=== PATIENT | male | born 1945 | race Caucasian/White ===

== ENCOUNTER → 2020-09-30 | Outpatient (CLI) | payer MEDICARE ==
--- NOTE | 2020-09-30 19:56 | REP ---
INDICATION: SMOKER. COMPARISON: None. TECHNIQUE: Dose reduction was performed utilizing CARE dose with automated adjustment of the kV and MAS according to patient size; iterative reconstruction, automated exposure control, as well as adaptive dose shielding. Helical scanning is acquired and 3 mm axial images are re-formatted at lung only windows. FINDINGS: Preliminary digital video coordinator radiograph demonstrates hyperinflation. There are [id number] emphysematous changes at the lung apices. Biapical pleuroparenchymal fibrosis changes are noted. No infiltrate or pleural effusion is seen. No lung mass lesion is seen. No significant pulmonary nodule is appreciated. Mild vascular calcification is observed. No significant pulmonary nodule is seen. IMPRESSION: Lung RADS category 1 findings. Repeat screening exam recommended in 1 year. <Electronically signed by Cecilio Harrison > 09/30/201951
== END ==
LOC: M RAD 13:21
PROVIDERS: ATTEND Family Medicine
DX: J98.4 Other disorders of lung (principal); J43.9 Emphysema, unspecified; J94.8 Other specified pleural conditions; F17.200 Nicotine dependence, unspecified, uncomplicated

== ENCOUNTER → 2021-09-12 | Outpatient (CLI) | payer MEDICARE ==
[~2021-09-12] MED LIST: AMLO1TAB24 PO; CLOP75TA2 PO; D-50CAP PO; ECOT81TA5 PO; FAMO1TAB11 PO; GABA-282 PO; IRON65TA2 PO; LEVO100T5 PO; OMEP40CA5 PO; PURE500C5 PO; SIMV20TA22 PO; TREL1AER IH
== END ==
LOC: M LABSMTC 11:17
PROVIDERS: ATTEND Anesthesiology
DX: Z20.828 Contact with and (suspected) exposure to other viral communicable diseases (principal); Z11.59 Encounter for screening for other viral diseases

== ENCOUNTER 2021-09-17 12:00 | Day surgery (SDC) | payer MEDICARE ==
[~2021-09-17] VITALS: Ht 165.1 cm; Wt 56.2 kg
[2021-09-17] MEDS ORDERED: LISI20TA33 PO (12:27)
[2021-09-17] MEDS ORDERED: propofoL 200 MG/20 ML VIAL As Ordered ONE (12:32)
[2021-09-17] MEDS ORDERED: LIDOCAINE 2% 100MG/5ML SDV (FOR ANES.) As Ordered ONE (12:32)
[2021-09-17] MEDS ORDERED: fentaNYL 100 MCG/2 ML INJECTION As Ordered ONE (13:14)
[2021-09-17] MEDS ORDERED: ePHEDrine SULFATE 25 MG/5 ML(5MG/ML) SYRINGE As Ordered ONE (13:26)
[2021-09-17 14:00] VITALS: BP 123/70
== END 2021-09-17 14:11 | disposition home or self-care (01) ==
LOC: M OPP 12:00
PROVIDERS: ATTEND Internal Medicine Gastroenterology
DX: K57.30 Diverticulosis of large intestine without perforation or abscess without bleeding (principal); K64.0 First degree hemorrhoids; K92.1 Melena; K44.9 Diaphragmatic hernia without obstruction or gangrene; K29.70 Gastritis, unspecified, without bleeding; R10.13 Epigastric pain; Z87.11 Personal history of peptic ulcer disease; Z79.82 Long term (current) use of aspirin; Z79.899 Other long term (current) drug therapy; F17.210 Nicotine dependence, cigarettes, uncomplicated
CPT/HCPCS: 43239; 45378; 88305; J3010

== ENCOUNTER → 2021-10-01 | Outpatient (CLI) | payer MEDICARE ==
[~2021-10-01] MED LIST changes: +LISI20TA33 PO
== END ==
LOC: M RAD 13:59
PROVIDERS: ATTEND Family Medicine
DX: F17.200 Nicotine dependence, unspecified, uncomplicated (principal); J43.9 Emphysema, unspecified; R91.1 Solitary pulmonary nodule; Z79.899 Other long term (current) drug therapy

== ENCOUNTER → 2022-10-07 | Outpatient (CLI) | payer MEDICARE ==
[~2022-10-07] MED LIST changes: +ASCO500C3 PO; -PURE500C5 PO
== END ==
LOC: M RAD 11:49
PROVIDERS: ATTEND Family Medicine
DX: Z12.2 Encounter for screening for malignant neoplasm of respiratory organs (principal); F17.210 Nicotine dependence, cigarettes, uncomplicated; R91.8 Other nonspecific abnormal finding of lung field

== ENCOUNTER → 2022-11-02 | Outpatient (CLI) | payer MEDICARE | LOC: M PLARAD 07:55 | PROVIDERS: ATTEND Family Medicine | DX: R91.8 Other nonspecific abnormal finding of lung field (principal); F17.200 Nicotine dependence, unspecified, uncomplicated | CPT/HCPCS: 78815; A9552 ==

== ENCOUNTER → 2022-12-04 | Outpatient (CLI) | payer MEDICARE | LOC: M RAD 07:59 | PROVIDERS: ATTEND Surgery | DX: R93.2 Abnormal findings on diagnostic imaging of liver and biliary tract (principal) ==

== ENCOUNTER 2023-03-16 19:02 | Inpatient (IN) | payer MEDICARE ==
[~2023-03-16] VITALS: Ht 162.6 cm; Wt 59.1 kg
[~2023-03-16 19:02] MED LIST changes: -TREL1AER IH; +TREL1AER INH
[2023-03-16 20:25] VITALS: BP 153/69; TEMP 97.3; O2SAT 95
[2023-03-16] MEDS ORDERED: MOM 30ML SUSPENSION UDC PO PRN (20:40)
[2023-03-16] MEDS ORDERED: ACETAMINOPHEN TAB 650MG DOSE (2X325MG) PO PRN (20:40)
[2023-03-16 21:36] LABS: HEMOGLOBIN 13.7 g/dl (13.5-17.5); MEAN CORPUSCULAR HEMOGLOBIN 31.7 pg (27.0-33.0); MEAN CORPUSCULAR HGB CONC 34.3 g/dl (32.0-36.5); MEAN CORPUSCULAR VOLUME 92.6 fl (80.0-96.0); PLATELET COUNT, AUTOMATED 476 10^3/uL (150-450); RED BLOOD COUNT 4.32 10^6/uL (4.30-6.10); WHITE BLOOD COUNT 13.8 10^3/uL (4.0-10.0)
[2023-03-16 21:49] LABS: INR 1.07; PROTHROMBIN TIME 13.6 SECONDS (12.5-14.5)
[2023-03-16] MEDS ORDERED: ALBUTEROL SULFATE 2.5MG/0.5ML INH NEB SOLN NEB PRN (21:50)
[2023-03-16] MEDS ORDERED: cefTRIAXone SOD 2 GM in D5W MINI-BAG PLUS 50 ML IV SCH (22:00)
[2023-03-16 22:06] LABS: ALBUMIN 2.9 G/DL (3.2-5.2); ALKALINE PHOSPHATASE 73 U/L (46-116); ALT/SGPT 45 U/L (7.0-40); AST/SGOT < 8 U/L (<34); BILIRUBIN,TOTAL 0.3 MG/DL (0.3-1.2); BLOOD UREA NITROGEN 24 MG/DL (9-23); CALCIUM LEVEL 9.2 MG/DL (8.3-10.6); CARBON DIOXIDE LEVEL 30 MMOL/L (20-31); CHLORIDE LEVEL 101 MMOL/L (98-107); CREATININE FOR GFR 0.98 MG/DL (0.70-1.30); GLOMERULAR FILTRATION RATE > 60.0 (>42); GLUCOSE, FASTING 143 MG/DL (74-106); POTASSIUM SERUM 5.2 MMOL/L (3.5-5.1); SODIUM LEVEL 136 MMOL/L (136-145)
[2023-03-16] MEDS ORDERED: ISOVUE-370 76% 100ML VIAL As Ordered ONE (22:07)
[2023-03-16 22:13] LABS: PROCALCITONIN <0.04 ng/ml
[2023-03-16] MEDS ORDERED: AZITHROMYCIN INJ 500 MG, VIAL MATE ADAPTER 1 EACH in D5W 250 ML IV SCH (23:00)
[2023-03-17] VITALS (48 sets, daily range): BP systolic 90–159; BP diastolic 48–69; TEMP 97.1–97.9; O2SAT 91–98
[2023-03-17] MEDS ORDERED: SYNT75TA PO (00:20)
[2023-03-17] MEDS ORDERED: PREG100CA PO ×2 (00:20→00:21)
[2023-03-17] MEDS ORDERED: ALBU8.5H INH (00:20)
[2023-03-17] MEDS ORDERED: AMOX875T2 PO (00:20)
[2023-03-17] MEDS ORDERED: PRED20TA PO (00:20)
[2023-03-17] MEDS ORDERED: AMLO2.5T3 PO (00:20)
[2023-03-17] MEDS ORDERED: FURO20TA2 PO (00:20)
[2023-03-17] MEDS ORDERED: LISI40TA4 PO (00:20)
[2023-03-17] MEDS ORDERED: OMEP-173 PO (00:20)
[2023-03-17] MEDS ORDERED: EZET10TA58 PO (00:20)
[2023-03-17] MEDS ORDERED: GABA-282 PO (00:21)
[2023-03-17] MEDS ORDERED: MED REC IN PROGRESS XX SCH (00:25)
[2023-03-17] MEDS: IPRATROPIUM 0.5MG/ALBUTEROL 2.5MG INH SOL UD 3ML (DUONEB) NEB SCH ×4 (01:22→19:29)
[2023-03-17 05:57] LABS: HEMATOCRIT 37.2 % (42.0-52.0); HEMOGLOBIN 12.7 g/dl (13.5-17.5); MEAN CORPUSCULAR HEMOGLOBIN 31.3 pg (27.0-33.0); MEAN CORPUSCULAR HGB CONC 34.1 g/dl (32.0-36.5); MEAN CORPUSCULAR VOLUME 91.6 fl (80.0-96.0); PLATELET COUNT, AUTOMATED 466 10^3/uL (150-450); RED BLOOD COUNT 4.06 10^6/uL (4.30-6.10); WHITE BLOOD COUNT 17.2 10^3/uL (4.0-10.0)
[2023-03-17] MEDS: LEVOTHYROXINE 75MCG TABLET (0.075MG) PO SCH (06:17)
[2023-03-17] MEDS ORDERED: HOME MED LIST COMPLETE! XX SCH (06:25)
[2023-03-17 06:27] LABS: BLOOD UREA NITROGEN 22 MG/DL (9-23); CALCIUM LEVEL 8.6 MG/DL (8.3-10.6); CARBON DIOXIDE LEVEL 28 MMOL/L (20-31); CHLORIDE LEVEL 101 MMOL/L (98-107); CREATININE FOR GFR 0.94 MG/DL (0.70-1.30); GLOMERULAR FILTRATION RATE > 60.0 (>42); GLUCOSE, FASTING 121 MG/DL (74-106); POTASSIUM SERUM 4.4 MMOL/L (3.5-5.1); SODIUM LEVEL 135 MMOL/L (136-145)
[2023-03-17] MEDS: PIPERACILLIN/TAZOBACTAM SOD 4.5 GM in D5W MINI-BAG PLUS 50 ML IV SCH ×3 (08:17→23:36)
[2023-03-17] MEDS: OMEPRAZOLE 20MG CAP PO SCH (08:18)
[2023-03-17] MEDS: NICOTINE 21MG/24HR 1 EA TRANSDERMAL TD SCH (08:19)
[2023-03-17] MEDS: CLOPIDOGREL 75 MG TAB PO SCH (08:19)
[2023-03-17] MEDS: EZETIMIBE 10MG TABLET (ZETIA) PO SCH (08:19)
[2023-03-17] MEDS: ASPIRIN 81MG ENTERIC TABLET PO SCH (08:19)
[2023-03-17] MEDS ORDERED: LIDOCAINE 1% MDV 20ML VIAL SC PRN (08:55)
[2023-03-17] MEDS ORDERED: flumazeniL 0.5MG/5ML VIAL IV PRN (08:55)
[2023-03-17] MEDS: DOCUSATE SODIUM 100MG CAPSULE PO SCH ×2 (09:00→20:37)
[2023-03-17] MEDS: MIDAZOLAM 5MG 5ML VIAL (FOR CHEST TUBE INSERTIONS) IV PRN ×2 (09:06→09:09)
[2023-03-17] MEDS ORDERED: KETOROLAC 30 MG/ML 1ML VIAL As Ordered ONE (09:18)
[2023-03-17] MEDS ORDERED: PERCOCET 5MG/325MG TAB PO PRN ×2 (09:30)
[2023-03-17] MEDS ORDERED: ONDANSETRON 4MG 2ML VIAL IV PRN (09:30)
[2023-03-17] MEDS ORDERED: BISACODYL 10MG SUPP PR PRN (09:30)
[2023-03-17] MEDS ORDERED: LEVALBUTEROL 1.25MG 0.5ML CONCENTRATE NEB NEB PRN (09:30)
[2023-03-17] MEDS ORDERED: KCL 20MEQ IN D5/NS 1000ML 1,000 ML IV SCH (09:30)
[2023-03-17] MEDS ORDERED: KETOROLAC 30 MG/ML 1ML VIAL IV ONE (09:45)
[2023-03-17 09:51] LABS: LDH LACTATE DEHYDROGENASE 147 U/L (120-246)
[2023-03-17 11:33] LABS: PLEURAL FL COLOR RED (COLORLESS); SOURCE, BODY FLUID PLEURAL
[2023-03-17 11:34] LABS: APPEARANCE, BODY FLUID TURBID (CLEAR)
[2023-03-17 11:40] LABS: SOURCE, BODY FLUID pH PLEURAL
[2023-03-17 11:58] LABS: SOURCE, BODY FLUID ALBUMIN PLEURAL
[2023-03-17 12:04] LABS: SOURCE, BODY FLUID GLUCOSE PLEURAL; SOURCE, BODY FLUID TRIG PLEURAL; TRIGLYCERIDE, BODY FLUID 44 MG/DL (NOT ESTABLISHED)
[2023-03-17 12:05] LABS: AMYLASE, BODY FLUID 33 U/L (NOT ESTABLISHED); SOURCE, BODY FLUID AMYLASE PLEURAL
[2023-03-17 12:06] LABS: CHOLESTEROL, BODY FLUID 86 MG/DL (NOT ESTABLISHED); SOURCE, BODY FLUID CHOL PLEURAL; SOURCE, BODY FLUID TOT PROTEIN PLEURAL; TOTAL PROTEIN, BODY FLUID 4.3 G/DL (NOT ESTABLISHED)
[2023-03-17 12:15] LABS: LDH, BODY FLUID > 750 U/L (NOT ESTABLISHED); SOURCE, BODY FLUID LDH PLEURAL
[2023-03-17] MEDS ORDERED: LEVALBUTEROL 1.25MG 0.5ML CONCENTRATE NEB NEB SCH (14:00)
[2023-03-17] MEDS: TIOTROPIUM INHALER/CAPSULE (SPIRIVA) INH SCH (14:46)
[2023-03-17] MEDS: KETOROLAC 30 MG/ML 1ML VIAL IV SCH ×2 (16:04→20:38)
[2023-03-17] MEDS: ADVAIR HFA 115/21MCG INHALER INH SCH (19:29)
[2023-03-17] MEDS: AZITHROMYCIN 250MG TABLET PO SCH (20:37)
[2023-03-18] VITALS (23 sets, daily range): BP systolic 100–166; BP diastolic 50–70; TEMP 97.2–98.5; O2SAT 93–97
[2023-03-18] MEDS: IPRATROPIUM 0.5MG/ALBUTEROL 2.5MG INH SOL UD 3ML (DUONEB) NEB SCH ×4 (01:14→19:24)
[2023-03-18] MEDS: KETOROLAC 30 MG/ML 1ML VIAL IV SCH ×2 (04:00→09:09)
[2023-03-18 05:12] LABS: BASO # 0.1 10^3/uL (0.0-0.2); BASO % 0.4 % (0.0-1.0); EOS # 0.5 10^3/uL (0.0-0.5); EOS % 3.7 % (0.0-3.0); HEMOGLOBIN 12.7 g/dl (13.5-17.5); LYMPH # 1.8 10^3/uL (1.5-5.0); LYMPH % 13.2 % (24.0-44.0); MEAN CORPUSCULAR HEMOGLOBIN 31.4 pg (27.0-33.0); MEAN CORPUSCULAR HGB CONC 33.4 g/dl (32.0-36.5); MEAN CORPUSCULAR VOLUME 93.8 fl (80.0-96.0); MONO % 11.6 % (2.0-8.0); NEUTROPHILS # 9.5 10^3/uL (1.5-8.5); NEUTROPHILS % 69.8 % (36.0-66.0); PLATELET COUNT, AUTOMATED 454 10^3/uL (150-450); RED BLOOD COUNT 4.05 10^6/uL (4.30-6.10); WHITE BLOOD COUNT 13.5 10^3/uL (4.0-10.0)
[2023-03-18 05:34] LABS: BLOOD UREA NITROGEN 25 MG/DL (9-23); CALCIUM LEVEL 8.4 MG/DL (8.3-10.6); CARBON DIOXIDE LEVEL 27 MMOL/L (20-31); CHLORIDE LEVEL 100 MMOL/L (98-107); CREATININE FOR GFR 1.22 MG/DL (0.70-1.30); GLOMERULAR FILTRATION RATE > 60.0 (>42); GLUCOSE, FASTING 103 MG/DL (74-106); SODIUM LEVEL 133 MMOL/L (136-145)
[2023-03-18] MEDS: LEVOTHYROXINE 75MCG TABLET (0.075MG) PO SCH (05:49)
[2023-03-18 06:06] LABS: ABG BASE EXCESS 4.2 (-2.0-2.0); ABG HCO3 27.5 MMOL/L (22.0-26.0); ABG O2 SATURATION 95.9 % (95.0-99.0); ABG PARTIAL PRESSURE CO2 36.9 mmHg (35.0-45.0); ABG STANDARD HCO3 28.1 MMOL/L. (22.0-26.0); ABG TOTAL CO2 28.6 MMOL/L (23.0-31.0)
[2023-03-18 06:40] LABS: MONO # 1.6 10^3/uL (0.0-0.8)
[2023-03-18] MEDS: TIOTROPIUM INHALER/CAPSULE (SPIRIVA) INH SCH (08:18)
[2023-03-18] MEDS: ADVAIR HFA 115/21MCG INHALER INH SCH ×2 (08:19→19:24)
[2023-03-18] MEDS: DOCUSATE SODIUM 100MG CAPSULE PO SCH ×2 (09:00→20:27)
[2023-03-18] MEDS: NICOTINE 21MG/24HR 1 EA TRANSDERMAL TD SCH (09:00)
[2023-03-18] MEDS ORDERED: PANTOPRAZOLE 40MG TAB (PROTONIX) PO SCH (09:00)
[2023-03-18] MEDS: OMEPRAZOLE 20MG CAP PO SCH (09:07)
[2023-03-18] MEDS: CLOPIDOGREL 75 MG TAB PO SCH (09:07)
[2023-03-18] MEDS: ASPIRIN 81MG ENTERIC TABLET PO SCH (09:07)
[2023-03-18] MEDS: EZETIMIBE 10MG TABLET (ZETIA) PO SCH (09:07)
[2023-03-18] MEDS: PIPERACILLIN/TAZOBACTAM SOD 4.5 GM in D5W MINI-BAG PLUS 50 ML IV SCH ×3 (10:01→23:37)
[2023-03-18] MEDS: NS 1,000 ML IV SCH (12:29)
[2023-03-18] MEDS: AZITHROMYCIN 250MG TABLET PO SCH (20:26)
[2023-03-19] VITALS (26 sets, daily range): BP systolic 112–139; BP diastolic 59–63; TEMP 97.7–98.8; O2SAT 92–97
[2023-03-19] MEDS: IPRATROPIUM 0.5MG/ALBUTEROL 2.5MG INH SOL UD 3ML (DUONEB) NEB SCH ×4 (01:02→19:59)
[2023-03-19] MEDS: NS 1,000 ML IV SCH (01:24)
[2023-03-19 05:23] LABS: BASO # 0.1 10^3/uL (0.0-0.2); BASO % 0.5 % (0.0-1.0); EOS # 0.8 10^3/uL (0.0-0.5); EOS % 8.6 % (0.0-3.0); HEMATOCRIT 35.9 % (42.0-52.0); HEMOGLOBIN 12.3 g/dl (13.5-17.5); LYMPH # 1.3 10^3/uL (1.5-5.0); LYMPH % 13.3 % (24.0-44.0); MEAN CORPUSCULAR HEMOGLOBIN 31.5 pg (27.0-33.0); MEAN CORPUSCULAR HGB CONC 34.3 g/dl (32.0-36.5); MEAN CORPUSCULAR VOLUME 91.8 fl (80.0-96.0); MONO # 1.2 10^3/uL (0.0-0.8); MONO % 12.6 % (2.0-8.0); PLATELET COUNT, AUTOMATED 425 10^3/uL (150-450); RED BLOOD COUNT 3.91 10^6/uL (4.30-6.10); WHITE BLOOD COUNT 9.5 10^3/uL (4.0-10.0)
[2023-03-19 05:34] LABS: BLOOD UREA NITROGEN 13 MG/DL (9-23); CALCIUM LEVEL 8.2 MG/DL (8.3-10.6); CARBON DIOXIDE LEVEL 27 MMOL/L (20-31); CHLORIDE LEVEL 104 MMOL/L (98-107); CREATININE FOR GFR 1.13 MG/DL (0.70-1.30); GLOMERULAR FILTRATION RATE > 60.0 (>42); GLUCOSE, FASTING 98 MG/DL (74-106); POTASSIUM SERUM 3.9 MMOL/L (3.5-5.1); SODIUM LEVEL 136 MMOL/L (136-145)
[2023-03-19] MEDS: LEVOTHYROXINE 75MCG TABLET (0.075MG) PO SCH (05:41)
[2023-03-19] MEDS: ADVAIR HFA 115/21MCG INHALER INH SCH ×2 (07:57→19:59)
[2023-03-19] MEDS: TIOTROPIUM INHALER/CAPSULE (SPIRIVA) INH SCH (07:57)
[2023-03-19] MEDS: DOCUSATE SODIUM 100MG CAPSULE PO SCH ×2 (08:01→20:59)
[2023-03-19] MEDS: OMEPRAZOLE 20MG CAP PO SCH (08:33)
[2023-03-19] MEDS: CLOPIDOGREL 75 MG TAB PO SCH (08:33)
[2023-03-19] MEDS: EZETIMIBE 10MG TABLET (ZETIA) PO SCH (08:33)
[2023-03-19] MEDS: ASPIRIN 81MG ENTERIC TABLET PO SCH (08:33)
[2023-03-19] MEDS: NICOTINE 21MG/24HR 1 EA TRANSDERMAL TD SCH (08:34)
[2023-03-19] MEDS: GASTROGRAFIN SOLUTION 30ML PO SCH ×2 (11:50→12:32)
[2023-03-19] MEDS ORDERED: ISOVUE-370 76% 100ML VIAL As Ordered ONE (13:44)
[2023-03-19] MEDS: AZITHROMYCIN 250MG TABLET PO SCH (20:59)
[2023-03-20] VITALS (7 sets, daily range): BP systolic 115–130; BP diastolic 56–66; TEMP 97.4–97.9; O2SAT 93–99
[2023-03-20] MEDS: IPRATROPIUM 0.5MG/ALBUTEROL 2.5MG INH SOL UD 3ML (DUONEB) NEB SCH ×2 (01:01→07:05)
[2023-03-20] MEDS: LEVOTHYROXINE 75MCG TABLET (0.075MG) PO SCH (05:55)
[2023-03-20 06:34] LABS: BASO # 0.1 10^3/uL (0.0-0.2); BASO % 0.8 % (0.0-1.0); EOS # 0.8 10^3/uL (0.0-0.5); EOS % 6.1 % (0.0-3.0); HEMATOCRIT 38.3 % (42.0-52.0); HEMOGLOBIN 12.5 g/dl (13.5-17.5); LYMPH # 1.5 10^3/uL (1.5-5.0); LYMPH % 10.8 % (24.0-44.0); MEAN CORPUSCULAR HEMOGLOBIN 31.3 pg (27.0-33.0); MEAN CORPUSCULAR HGB CONC 32.6 g/dl (32.0-36.5); MEAN CORPUSCULAR VOLUME 95.8 fl (80.0-96.0); MONO # 1.4 10^3/uL (0.0-0.8); NEUTROPHILS # 9.5 10^3/uL (1.5-8.5); NEUTROPHILS % 70.8 % (36.0-66.0); PLATELET COUNT, AUTOMATED 294 10^3/uL (150-450); WHITE BLOOD COUNT 13.5 10^3/uL (4.0-10.0)
[2023-03-20] MEDS: ADVAIR HFA 115/21MCG INHALER INH SCH (07:05)
[2023-03-20] MEDS: TIOTROPIUM INHALER/CAPSULE (SPIRIVA) INH SCH (07:05)
[2023-03-20 07:11] LABS: BLOOD UREA NITROGEN 11 MG/DL (9-23); CALCIUM LEVEL 8.4 MG/DL (8.3-10.6); CARBON DIOXIDE LEVEL 27 MMOL/L (20-31); CHLORIDE LEVEL 105 MMOL/L (98-107); CREATININE FOR GFR 0.89 MG/DL (0.70-1.30); GLOMERULAR FILTRATION RATE > 60.0 (>42); GLUCOSE, FASTING 95 MG/DL (74-106); POTASSIUM SERUM 4.4 MMOL/L (3.5-5.1); SODIUM LEVEL 138 MMOL/L (136-145)
[2023-03-20] MEDS: NICOTINE 21MG/24HR 1 EA TRANSDERMAL TD SCH (09:00)
[2023-03-20] MEDS: DOCUSATE SODIUM 100MG CAPSULE PO SCH (09:00)
[2023-03-20] MEDS: EZETIMIBE 10MG TABLET (ZETIA) PO SCH (09:05)
[2023-03-20] MEDS: OMEPRAZOLE 20MG CAP PO SCH (09:05)
[2023-03-20] MEDS: ASPIRIN 81MG ENTERIC TABLET PO SCH (09:05)
[2023-03-20] MEDS: CLOPIDOGREL 75 MG TAB PO SCH (09:05)
[2023-03-20] MEDS ORDERED: ALB2.5NEB NEB (09:21)
== END 2023-03-20 11:17 | disposition home or self-care (01) | DRG 180 ==
LOC: M PCU 20:24
PROVIDERS: ADMIT Student in an Organized Health Care Education/Training Program; ATTEND Student in an Organized Health Care Education/Training Program
PROC: 0W9930Z Drainage of Right Pleural Cavity with Drainage Device, Percutaneous Approach (ICD-10-PCS; principal; 2023-03-17)
DX: C34.11 Malignant neoplasm of upper lobe, right bronchus or lung (principal); J96.01 Acute respiratory failure with hypoxia; J91.0 Malignant pleural effusion; J81.1 Chronic pulmonary edema; E03.9 Hypothyroidism, unspecified; I10 Essential (primary) hypertension; J44.9 Chronic obstructive pulmonary disease, unspecified; E78.5 Hyperlipidemia, unspecified; Z95.9 Presence of cardiac and vascular implant and graft, unspecified; Z66 Do not resuscitate; Z79.02 Long term (current) use of antithrombotics/antiplatelets; Z79.82 Long term (current) use of aspirin; F17.210 Nicotine dependence, cigarettes, uncomplicated; Z92.3 Personal history of irradiation; Z79.899 Other long term (current) drug therapy; E86.0 Dehydration

== ENCOUNTER 2023-04-10 10:53 | Emergency (ER) | payer MEDICARE ==
[~2023-04-10] VITALS: Ht 162.6 cm; Wt 53.8 kg
[~2023-04-10 10:53] MED LIST changes: +ALB2.5NEB NEB; +ALBU8.5H INH; +AMLO2.5T3 PO; +AMOX875T2 PO; +EZET10TA58 PO; +FURO20TA2 PO; +LEVO88TA3; +LIDO30CR18 TOP; +LISI20TA33; +LISI40TA4 PO; +OMEP-173 PO; +PRED20TA PO; +PREG100CA PO; +SYNT75TA PO
[2023-04-10 10:54] VITALS: BP 149/70; TEMP 96.9; O2SAT 96
== END 2023-04-10 14:41 | disposition home or self-care (01) ==
LOC: M ED 12:52
DX: R06.02 Shortness of breath (principal); I45.10 Unspecified right bundle-branch block; I25.2 Old myocardial infarction; I10 Essential (primary) hypertension; F17.200 Nicotine dependence, unspecified, uncomplicated; Z79.01 Long term (current) use of anticoagulants; Z79.811 Long term (current) use of aromatase inhibitors; Z79.899 Other long term (current) drug therapy

== ENCOUNTER → 2023-04-19 | Outpatient (CLI) | payer MEDICARE ==
[~2023-04-19] MED LIST changes: +IPRA0.00
== END ==
LOC: M RAD 13:12
PROVIDERS: ATTEND Internal Medicine Critical Care Medicine
DX: C34.90 Malignant neoplasm of unspecified part of unspecified bronchus or lung (principal)

== ENCOUNTER 2023-05-03 17:38 | Emergency (ER) | payer MEDICARE ==
[~2023-05-03] VITALS: Ht 162.6 cm; Wt 52.4 kg
[~2023-05-03 17:38] MED LIST changes: -ACET-716 PO; -BENZ200C70 PO
[2023-05-03 17:39] VITALS: TEMP 96.5
[2023-05-03] MEDS ORDERED: SODIUM CHLORIDE 0.9% INJ 10 ML SYR IV PRN (18:30)
[2023-05-03 19:20] LABS: BASO # 0.1 10^3/uL (0.0-0.2); BASO % 1.3 % (0.0-1.0); EOS # 0.5 10^3/uL (0.0-0.5); EOS % 4.9 % (0.0-3.0); HEMATOCRIT 42.7 % (42.0-52.0); HEMOGLOBIN 14.5 g/dl (13.5-17.5); LYMPH # 1.8 10^3/uL (1.5-5.0); LYMPH % 19.4 % (24.0-44.0); MEAN CORPUSCULAR HEMOGLOBIN 31.5 pg (27.0-33.0); MEAN CORPUSCULAR VOLUME 92.8 fl (80.0-96.0); MONO # 0.9 10^3/uL (0.0-0.8); PLATELET COUNT, AUTOMATED 385 10^3/uL (150-450); WHITE BLOOD COUNT 9.3 10^3/uL (4.0-10.0)
[2023-05-03 19:44] LABS: LIPASE 31 U/L (12-53)
[2023-05-03 19:45] LABS: ALBUMIN 3.6 G/DL (3.2-5.2); ALKALINE PHOSPHATASE 73 U/L (46-116); ALT/SGPT < 9 U/L (7.0-40); AST/SGOT 13 U/L (<34); BILIRUBIN,DIRECT < 0.1 MG/DL (<0.4); BILIRUBIN,TOTAL 0.2 MG/DL (0.3-1.2); BLOOD UREA NITROGEN 16 MG/DL (9-23); CALCIUM LEVEL 9.8 MG/DL (8.3-10.6); CARBON DIOXIDE LEVEL 29 MMOL/L (20-31); CHLORIDE LEVEL 100 MMOL/L (98-107); CK-MB VALUE MASS < 1.0 NG/ML (<3.6); CPK CREATINE PHOSPHOKINASE 42 U/L (46-171); CREATININE FOR GFR 0.98 MG/DL (0.70-1.30); GLOMERULAR FILTRATION RATE > 60.0 (>42); GLUCOSE, FASTING 92 MG/DL (74-106); MB/CK RELATIVE INDEX 2.38 (< OR =4); POTASSIUM SERUM 4.1 MMOL/L (3.5-5.1); SODIUM LEVEL 137 MMOL/L (136-145); TOTAL PROTEIN 6.8 G/DL (5.7-8.2)
[2023-05-03] MEDS ORDERED: ISOVUE-370 76% 100ML VIAL As Ordered ONE (19:54)
[2023-05-03 21:30] VITALS: O2SAT 93
[2023-05-03] MEDS ORDERED: BENZ200C70 PO (21:48)
[2023-05-03] MEDS ORDERED: ACET-716 PO (21:48)
[2023-05-03 22:15] VITALS: BP 158/75
== END 2023-05-03 22:21 | disposition home or self-care (01) ==
LOC: M ED 17:38
DX: R06.00 Dyspnea, unspecified (principal); R09.1 Pleurisy; J91.8 Pleural effusion in other conditions classified elsewhere; E78.5 Hyperlipidemia, unspecified; F17.200 Nicotine dependence, unspecified, uncomplicated; J44.9 Chronic obstructive pulmonary disease, unspecified; J98.4 Other disorders of lung; Z79.01 Long term (current) use of anticoagulants; Z79.52 Long term (current) use of systemic steroids; Z79.811 Long term (current) use of aromatase inhibitors; Z79.83 Long term (current) use of bisphosphonates; Z79.899 Other long term (current) drug therapy
CPT/HCPCS: 71046; 71275; 80048; 80076; 82550; 82553; 83605; 83690; 83880; 84484; 85025; 87040; 93005; 93041; 94760; 96374; 99285; Q9967

== ENCOUNTER → 2023-05-03 | Outpatient (CLI) | payer MEDICARE ==
[~2023-05-03] MED LIST changes: +ACET-716 PO; +BENZ200C70 PO; +PROC10TA5 PO
== END ==
LOC: M RAD 12:01
PROVIDERS: ATTEND Internal Medicine Critical Care Medicine
DX: J98.4 Other disorders of lung (principal)

== ENCOUNTER 2023-05-24 21:36 | Inpatient (IN) | payer MEDICARE ==
[~2023-05-24] VITALS: Ht 162.6 cm; Wt 49.5 kg
[~2023-05-24 21:36] MED LIST changes: +ACET-716 PO; +BENZ200C70 PO
[2023-05-24] MEDS ORDERED: APAP325T4 PO (21:50)
[2023-05-24 22:28] LABS: BASO # 0.1 10^3/uL (0.0-0.2); EOS # 0.4 10^3/uL (0.0-0.5); EOS % 3.3 % (0.0-3.0); HEMATOCRIT 40.7 % (42.0-52.0); LYMPH # 1.3 10^3/uL (1.5-5.0); LYMPH % 11.4 % (24.0-44.0); MEAN CORPUSCULAR HEMOGLOBIN 31.5 pg (27.0-33.0); MEAN CORPUSCULAR HGB CONC 34.4 g/dl (32.0-36.5); MEAN CORPUSCULAR VOLUME 91.7 fl (80.0-96.0); MONO # 1.2 10^3/uL (0.0-0.8); MONO % 10.8 % (2.0-8.0); NEUTROPHILS # 8.4 10^3/uL (1.5-8.5); NEUTROPHILS % 73.2 % (36.0-66.0); PLATELET COUNT, AUTOMATED 264 10^3/uL (150-450); RED BLOOD COUNT 4.44 10^6/uL (4.30-6.10); WHITE BLOOD COUNT 11.5 10^3/uL (4.0-10.0)
[2023-05-24] MEDS ORDERED: SODIUM CHLORIDE 0.9% INJ 10 ML SYR IV PRN (22:30)
[2023-05-24 22:39] LABS: INR 1.14; PROTHROMBIN TIME 14.2 SECONDS (12.5-14.5)
[2023-05-24] MEDS: NITROGLYCERIN 0.4MG SUBL TABLET SL PRN ×3 (22:46→22:59)
[2023-05-24] MEDS: ASPIRIN 81MG CHEW TABLET PO ONE ×2 (22:48→23:59)
[2023-05-24 23:01] LABS: ALBUMIN 3.2 G/DL (3.2-5.2); ALKALINE PHOSPHATASE 83 U/L (46-116); ALT/SGPT < 9 U/L (7.0-40); AST/SGOT 9 U/L (<34); BILIRUBIN,DIRECT 0.1 MG/DL (<0.4); BILIRUBIN,TOTAL 0.3 MG/DL (0.3-1.2); BLOOD UREA NITROGEN 17 MG/DL (9-23); CALCIUM LEVEL 9.5 MG/DL (8.3-10.6); CARBON DIOXIDE LEVEL 28 MMOL/L (20-31); CHLORIDE LEVEL 100 MMOL/L (98-107); CK-MB VALUE MASS < 1.0 NG/ML (<3.6); GLOMERULAR FILTRATION RATE > 60.0 (>42); GLUCOSE, FASTING 114 MG/DL (74-106); POTASSIUM SERUM 4.2 MMOL/L (3.5-5.1); SODIUM LEVEL 134 MMOL/L (136-145); TOTAL PROTEIN 6.6 G/DL (5.7-8.2)
[2023-05-24 23:03] LABS: FREE T4 1.09 NG/DL (0.89-1.76); THYROID STIMULATING HORMONE 7.763 uIU/ML (0.55-4.78)
[2023-05-24 23:10] LABS: CPK CREATINE PHOSPHOKINASE 36 U/L (46-171); MB/CK RELATIVE INDEX 2.77 (< OR =4)
[2023-05-24] MEDS ORDERED: PIPERACILLIN/TAZOBACTAM SOD 4.5 GM in D5W MINI-BAG PLUS 50 ML IV ONE (23:30)
[2023-05-24] MEDS ORDERED: ISOVUE-370 76% 100ML VIAL As Ordered ONE (23:31)
[2023-05-25] VITALS (8 sets, daily range): BP systolic 99–160; BP diastolic 57–81; TEMP 96.4–98.2; O2SAT 93–97
[2023-05-25 00:05] LABS: CK-MB VALUE MASS < 1.0 NG/ML (<3.6)
[2023-05-25 00:08] LABS: CPK CREATINE PHOSPHOKINASE 38 U/L (46-171); MB/CK RELATIVE INDEX 2.63 (< OR =4)
[2023-05-25] MEDS ORDERED: VANCOMYCIN HCL 1,000 MG, VIAL MATE ADAPTER 1 EACH in D5W 250 ML IV ONE (00:25)
[2023-05-25] MEDS ORDERED: LISI20TA33 PO (01:12)
[2023-05-25] MEDS ORDERED: BENZ200C70 PO (01:12)
[2023-05-25] MEDS ORDERED: SYNT88TA2 PO (01:12)
[2023-05-25] MEDS ORDERED: ACET650T15 PO (01:12)
[2023-05-25] MEDS ORDERED: IPRA0.00 INH (01:12)
[2023-05-25] MEDS ORDERED: ALBU2.5V10 INH (01:12)
[2023-05-25] MEDS ORDERED: ACETAMINOPHEN TAB 650MG DOSE (2X325MG) PO PRN (01:15)
[2023-05-25] MEDS ORDERED: VANCOMYCIN HCL IV SCH (01:15)
[2023-05-25] MEDS ORDERED: FLUID PLACE HOLDER IV SCH (01:15)
[2023-05-25] MEDS ORDERED: HOME MED LIST COMPLETE! XX SCH (01:15)
[2023-05-25] MEDS: IPRATROPIUM 0.5MG/ALBUTEROL 2.5MG INH SOL UD 3ML (DUONEB) INH SCH ×4 (01:58→20:08)
[2023-05-25] MEDS ORDERED: traMADol 50 MG TAB PO PRN (02:30)
[2023-05-25] MEDS ORDERED: PROCHLORPERAZINE 5MG TAB PO PRN (02:35)
[2023-05-25] MEDS ORDERED: ALBUTEROL 90 MCG/ACT 8GM HFA INHALER INH PRN (02:35)
[2023-05-25] MEDS ORDERED: SODIUM CHLORIDE 0.9% INJ 10 ML SYR IV PRN (03:35)
[2023-05-25 04:32] LABS: PROCALCITONIN <0.04 ng/ml
[2023-05-25] MEDS: HEPARIN SOD (PORCINE) 5000UNITS/ML 1ML VIAL/SYRINGE SC SCH ×4 (05:48→22:00)
[2023-05-25] MEDS: LEVOTHYROXINE 88MCG TABLET (0.088 MG) PO SCH ×2 (05:48→05:53)
[2023-05-25] MEDS: PIPERACILLIN/TAZOBACTAM SOD 4.5 GM in D5W MINI-BAG PLUS 50 ML IV SCH ×2 (05:54→11:21)
[2023-05-25] MEDS ORDERED: VANCOMYCIN HCL 500 MG in D5W MINI-BAG PLUS 100 ML IV SCH (09:00)
[2023-05-25] MEDS: OMEPRAZOLE 20MG CAP PO SCH (09:53)
[2023-05-25] MEDS: guaiFENesin ER TABLET 600 MG TAB PO SCH ×3 (09:53→22:32)
[2023-05-25] MEDS: EZETIMIBE 10MG TABLET (ZETIA) PO SCH (09:53)
[2023-05-25] MEDS: CLOPIDOGREL 75 MG TAB PO SCH (09:53)
[2023-05-25] MEDS: ASPIRIN 81MG ENTERIC TABLET PO SCH (09:53)
[2023-05-25] MEDS: SODIUM CHLORIDE 0.9% INJ 10 ML SYR IV SCH (10:00)
[2023-05-25 10:38] LABS: BASO # 0.1 10^3/uL (0.0-0.2); BASO % 0.8 % (0.0-1.0); EOS # 0.2 10^3/uL (0.0-0.5); HEMATOCRIT 39.3 % (42.0-52.0); HEMOGLOBIN 13.4 g/dl (13.5-17.5); LYMPH # 0.9 10^3/uL (1.5-5.0); LYMPH % 7.4 % (24.0-44.0); MEAN CORPUSCULAR HEMOGLOBIN 31.2 pg (27.0-33.0); MEAN CORPUSCULAR HGB CONC 34.1 g/dl (32.0-36.5); MEAN CORPUSCULAR VOLUME 91.4 fl (80.0-96.0); MONO # 1.2 10^3/uL (0.0-0.8); MONO % 10.4 % (2.0-8.0); NEUTROPHILS # 9.2 10^3/uL (1.5-8.5); NEUTROPHILS % 78.9 % (36.0-66.0); PLATELET COUNT, AUTOMATED 261 10^3/uL (150-450); WHITE BLOOD COUNT 11.7 10^3/uL (4.0-10.0)
[2023-05-25 10:55] LABS: ALBUMIN 3.2 G/DL (3.2-5.2); ALKALINE PHOSPHATASE 77 U/L (46-116); ALT/SGPT 10 U/L (7.0-40); AST/SGOT 10 U/L (<34); BILIRUBIN,TOTAL 0.6 MG/DL (0.3-1.2); BLOOD UREA NITROGEN 13 MG/DL (9-23); CALCIUM LEVEL 9.2 MG/DL (8.3-10.6); CARBON DIOXIDE LEVEL 28 MMOL/L (20-31); CHLORIDE LEVEL 102 MMOL/L (98-107); CREATININE FOR GFR 0.95 MG/DL (0.70-1.30); GLOMERULAR FILTRATION RATE > 60.0 (>42); GLUCOSE, FASTING 106 MG/DL (74-106); POTASSIUM SERUM 4.1 MMOL/L (3.5-5.1); SODIUM LEVEL 136 MMOL/L (136-145); TOTAL PROTEIN 6.4 G/DL (5.7-8.2)
[2023-05-25] MEDS: DOXYCYCLINE HYCLATE 100MG TABLET PO SCH ×2 (11:20→22:31)
[2023-05-25] MEDS: predniSONE 20 MG TAB PO SCH (11:20)
[2023-05-25] MEDS: TIOTROPIUM INHALER/CAPSULE (SPIRIVA) INH SCH (13:28)
[2023-05-25] MEDS: SYMBICORT 160/4.5MCG INHALER 6GM INH SCH ×2 (13:28→20:08)
[2023-05-25] MEDS ORDERED: ACETAMINOPH W/CODEINE #3 TAB UD PO PRN (14:15)
[2023-05-25] MEDS: PIPERACILLIN/TAZOBACTAM SOD 3.375 GM in D5W MINI-BAG PLUS 50 ML IV SCH ×2 (17:40→23:59)
[2023-05-25] MEDS ORDERED: PREGABALIN 100 MG CAP (LYRICA) PO SCH (21:00)
[2023-05-26 02:00] VITALS: BP 109/72; TEMP 97.9; O2SAT 92
[2023-05-26] MEDS: IPRATROPIUM 0.5MG/ALBUTEROL 2.5MG INH SOL UD 3ML (DUONEB) INH SCH ×2 (02:00→08:24)
[2023-05-26 05:08] VITALS: BP 102/62; TEMP 97.7; O2SAT 92
[2023-05-26 05:55] LABS: HEMATOCRIT 37.6 % (42.0-52.0); HEMOGLOBIN 12.7 g/dl (13.5-17.5); MEAN CORPUSCULAR HGB CONC 33.8 g/dl (32.0-36.5); MEAN CORPUSCULAR VOLUME 91.7 fl (80.0-96.0); PLATELET COUNT, AUTOMATED 272 10^3/uL (150-450); WHITE BLOOD COUNT 11.1 10^3/uL (4.0-10.0)
[2023-05-26] MEDS: HEPARIN SOD (PORCINE) 5000UNITS/ML 1ML VIAL/SYRINGE SC SCH ×2 (06:00→14:00)
[2023-05-26 06:27] LABS: ALBUMIN 2.9 G/DL (3.2-5.2); ALKALINE PHOSPHATASE 75 U/L (46-116); ALT/SGPT 17 U/L (7.0-40); AST/SGOT 13 U/L (<34); BILIRUBIN,TOTAL 0.3 MG/DL (0.3-1.2); BLOOD UREA NITROGEN 14 MG/DL (9-23); CALCIUM LEVEL 9.1 MG/DL (8.3-10.6); CARBON DIOXIDE LEVEL 27 MMOL/L (20-31); CHLORIDE LEVEL 100 MMOL/L (98-107); CREATININE FOR GFR 0.92 MG/DL (0.70-1.30); GLOMERULAR FILTRATION RATE > 60.0 (>42); GLUCOSE, FASTING 137 MG/DL (74-106); POTASSIUM SERUM 3.9 MMOL/L (3.5-5.1); SODIUM LEVEL 133 MMOL/L (136-145); TOTAL PROTEIN 6.4 G/DL (5.7-8.2)
[2023-05-26] MEDS: LEVOTHYROXINE 88MCG TABLET (0.088 MG) PO SCH (06:36)
[2023-05-26] MEDS: PIPERACILLIN/TAZOBACTAM SOD 3.375 GM in D5W MINI-BAG PLUS 50 ML IV SCH ×2 (06:36→12:15)
[2023-05-26] MEDS: SYMBICORT 160/4.5MCG INHALER 6GM INH SCH (08:24)
[2023-05-26] MEDS: TIOTROPIUM INHALER/CAPSULE (SPIRIVA) INH SCH (08:24)
[2023-05-26] MEDS: predniSONE 20 MG TAB PO SCH (08:26)
[2023-05-26] MEDS: EZETIMIBE 10MG TABLET (ZETIA) PO SCH (08:26)
[2023-05-26] MEDS: CLOPIDOGREL 75 MG TAB PO SCH (08:26)
[2023-05-26] MEDS: ASPIRIN 81MG ENTERIC TABLET PO SCH (08:26)
[2023-05-26 08:30] VITALS: BP 114/70
[2023-05-26] MEDS: guaiFENesin ER TABLET 600 MG TAB PO SCH (08:30)
[2023-05-26] MEDS: DOXYCYCLINE HYCLATE 100MG TABLET PO SCH (08:30)
[2023-05-26] MEDS: OMEPRAZOLE 20MG CAP PO SCH (08:30)
[2023-05-26] MEDS: SODIUM CHLORIDE 0.9% INJ 10 ML SYR IV SCH (08:31)
[2023-05-26] MEDS ORDERED: AMOX875T2 PO (10:12)
[2023-05-26] MEDS ORDERED: MUCI600T31 PO (10:12)
[2023-05-26] MEDS ORDERED: IPRA0.00 INH (10:12)
[2023-05-26] MEDS ORDERED: PRED20TA PO ×2 (10:12→10:23)
[2023-05-26] MEDS ORDERED: DOXY100T PO (10:12)
[2023-05-26 14:00] VITALS: BP 105/63; TEMP 97.7; O2SAT 95
[2023-06-01] MEDS ORDERED: SENN-186 PO (15:19)
[2023-06-01] MEDS ORDERED: MORP1SOL4 PO (15:19)
== END 2023-05-26 15:33 | disposition home health service (06) | DRG 193 ==
LOC: M ED 21:36 → M ED INP 05-25 01:14 → M MSPAV 05-25 03:23
PROVIDERS: ADMIT Internal Medicine; ATTEND Internal Medicine
DX: J18.9 Pneumonia, unspecified organism (principal); J96.01 Acute respiratory failure with hypoxia; J15.69 Pneumonia due to other Gram-negative bacteria; C34.91 Malignant neoplasm of unspecified part of right bronchus or lung; J44.1 Chronic obstructive pulmonary disease with (acute) exacerbation; J44.0 Chronic obstructive pulmonary disease with (acute) lower respiratory infection; J90 Pleural effusion, not elsewhere classified; I10 Essential (primary) hypertension; F17.200 Nicotine dependence, unspecified, uncomplicated; E78.5 Hyperlipidemia, unspecified; Z85.21 Personal history of malignant neoplasm of larynx; K21.9 Gastro-esophageal reflux disease without esophagitis; Z79.899 Other long term (current) drug therapy; Z79.82 Long term (current) use of aspirin; Z79.52 Long term (current) use of systemic steroids; Z66 Do not resuscitate; G62.9 Polyneuropathy, unspecified

== ENCOUNTER → 2023-06-01 | Outpatient (CLI) | payer MEDICARE ==
[~2023-06-01] VITALS: Ht 162.6 cm; Wt 49.8 kg
[~2023-06-01] MED LIST changes: +ACET650T15 PO; +ALBU2.5V10 INH; +APAP325T4 PO; +DOXY100T PO; +IPRA0.00 INH; +MORP1SOL4 PO; +MUCI600T31 PO; +SENN-186 PO; +SYNT88TA2 PO
[2023-06-01 14:00] VITALS: BP 133/74; O2SAT 94
== END ==
LOC: M PAL 14:19
PROVIDERS: ATTEND Nurse Practitioner Adult Health
DX: C34.90 Malignant neoplasm of unspecified part of unspecified bronchus or lung (principal); Z85.21 Personal history of malignant neoplasm of larynx; Z92.3 Personal history of irradiation; Z51.5 Encounter for palliative care; F17.210 Nicotine dependence, cigarettes, uncomplicated; K59.00 Constipation, unspecified; R06.09 Other forms of dyspnea; R07.1 Chest pain on breathing; R64 Cachexia; R05.9 Cough, unspecified; R06.01 Orthopnea; R63.0 Anorexia; Z66 Do not resuscitate; Z79.02 Long term (current) use of antithrombotics/antiplatelets; Z79.51 Long term (current) use of inhaled steroids; Z79.620 Long term (current) use of immunosuppressive biologic; Z79.82 Long term (current) use of aspirin; Z79.890 Hormone replacement therapy; Z79.899 Other long term (current) drug therapy; Z99.81 Dependence on supplemental oxygen

== ENCOUNTER → 2023-06-09 | Outpatient (CLI) | payer MEDICARE ==
[~2023-06-09] MED LIST changes: +ELIQ5TAB PO
== END ==
LOC: M RAD 13:06
PROVIDERS: ATTEND Specialist
DX: R22.41 Localized swelling, mass and lump, right lower limb (principal); I82.811 Embolism and thrombosis of superficial veins of right lower extremity

== ENCOUNTER → 2023-06-16 | Outpatient (CLI) | payer MEDICARE ==
[~2023-06-16] VITALS: Ht 162.6 cm; Wt 48.2 kg
[2023-06-16 08:07] VITALS: BP 82/49; O2SAT 95
[2023-06-16 08:35] VITALS: BP 82/42
== END ==
LOC: M PAL 07:54
PROVIDERS: ATTEND Nurse Practitioner Adult Health
DX: C34.90 Malignant neoplasm of unspecified part of unspecified bronchus or lung (principal); Z85.21 Personal history of malignant neoplasm of larynx; K59.00 Constipation, unspecified; R05.9 Cough, unspecified; R06.01 Orthopnea; R06.09 Other forms of dyspnea; R07.1 Chest pain on breathing; R63.0 Anorexia; R64 Cachexia; Z51.5 Encounter for palliative care; Z92.3 Personal history of irradiation; F17.210 Nicotine dependence, cigarettes, uncomplicated; Z66 Do not resuscitate; Z79.01 Long term (current) use of anticoagulants; Z79.51 Long term (current) use of inhaled steroids; Z79.82 Long term (current) use of aspirin; Z79.890 Hormone replacement therapy; Z79.891 Long term (current) use of opiate analgesic; Z79.899 Other long term (current) drug therapy; Z99.81 Dependence on supplemental oxygen